=== PATIENT | male | born 1990 | race Caucasian/White ===

== ENCOUNTER 2018-10-02 20:34 | Emergency (ER) | payer MEDICAID ==
[~2018-10-02] VITALS: Ht 188 cm; Wt 86.4 kg
[2018-10-02 21:03] VITALS: Ht 188 cm; Wt 86.4 kg
[2018-10-03 00:25] VITALS: BP 117/60; PULSE 70; RESP 18
--- NOTE | 2018-10-03 04:08 | ERD ---
ER Documentation Chief Complaint Chief Complaint both testicular pain on and off x 1 week, worse today HPI 28-year-old male brought in by his with concerns for bilateral testicular pain intermittently for the past 1 week. Pain is rated 3/10 in severity. He denies any penile discharge. He denies any masses palpated in the testicles. He denies any nausea, vomiting, diarrhea, fevers, abdominal pain. No other symptoms reported currently. ROS All systems reviewed and are negative except as per history of present illness. Allergies Allergies: Coded Allergies: No Known Drug Allergies (Verified Allergy, Mild, 09/30/09) PMhx/Soc History of Surgery: No Anesthesia Reaction: No Hx Neurological Disorder: No Hx Respiratory Disorders: No Hx Cardiac Disorders: No Hx Psychiatric Problems: No Hx Miscellaneous Medical Probl: No Hx Alcohol Use: Yes Hx Substance Use: No Hx Tobacco Use: No Smoking Status: Never smoker FmHx Family History: No diabetes Physical Exam Vitals Vital Signs Date Temp Pulse Resp B/P (MAP) Pulse Ox O2 O2 Flow FiO2 Time Delivery Rate 10/03/18 98.9 70 18 117/60 97 Room Air 00:25 (79) 10/02/18 98.0 69 18 119/67 99 21:03 (84) Physical Exam Const: No acute distress Head: Atraumatic Eyes: Normal Conjunctiva ENT: Normal External Ears, Nose and Mouth. Neck: Full range of motion. No meningismus. Resp: Clear to auscultation bilaterally Cardio: Regular rate and rhythm, no murmurs Abd: Soft, non tender, non distended. Normal bowel sounds Exam: Scrotum: Normal Hernia: None Testes/Epid: Non-tender w/ normal lie Cremaster: Reflex intact Lymph: No inguinal lymphadenopathy Discharge: None Skin: No petechiae or rashes Back: No midline or flank tenderness Ext: No cyanosis, or edema Neur: Awake and alert Psych: Normal Mood and Affect Results 24 hrs Laboratory Tests Test 10/02/18 22:53 Bedside Urine pH (LAB) 6.5 Bedside Urine Protein (LAB) Trace Bedside Urine Glucose (UA) Negative Bedside Urine Ketones (LAB) Negative Bedside Urine Blood Trace-intact Bedside Urine Nitrite (LAB) Negative Bedside Urine Leukocyte Esterase (L Negative [place] [id number] Radiology Main Line: [phone] DIAGNOSTIC IMAGING REPORT Patient: YEN CALZADA : 1990 Age: 28 Sex: M MR #: [id number] DOS: 10/02/18 0000 Ordering MD: OLEGARIO WALTERS PA-C Location: [facility] Room/Bed: PROCEDURE: Ultrasound of the bilateral inguinal regions. CLINICAL INDICATION: Bilateral inguinal pain. TECHNIQUE: High-resolution sonography of the bilateral inguinal regions at the site of pain was performed in the axial and sagittal planes. COMPARISON: None FINDINGS: There is no fluid collection or mass. There is no abnormal inguinal lymphadenopathy. IMPRESSION: 1. Normal bilateral inguinal ultrasound. 2. Any further management regarding the bilateral inguinal pain should be based on clinical grounds. RPTAT: QQ .Elías Wolfe MD, MD Date Time Electronically viewed and signed by .Elías Wolfe MD, on 10/02/2018 23:37 .R/ CC: OLEGARIO WALTERS PA-C [id number] [place] [id number] Radiology Main Line: [phone] DIAGNOSTIC IMAGING REPORT Patient: YEN CALZADA : 1990 Age: 28 Sex: M MR #: [id number] DOS: 10/02/18 0000 Ordering MD: OLEGARIO WALTERS PA-C Location: [facility] Room/Bed: PROCEDURE: US Scrotum. CLINICAL INDICATION: Scrotal pain. TECHNIQUE: Multiple sonographic images of the scrotal region were obtained utilizing a linear array transducer with grayscale and color-flow and pulsed Doppler imaging. The images were reviewed on a high-resolution PACS workstation. COMPARISON: No prior studies are available for comparison. FINDINGS: The right testis measures 4.2 x 2.3 x 2.9 cm. The left testis measures 4.6 x 1.8 x 3.2 cm. There is no intratesticular mass. The epididymi are normal. There is normal flow to both testes demonstrated with color Doppler and pulsed Doppler sonography. There are small bilateral hydroceles with left larger than right. There is no varicocele. The scrotal wall is unremarkable. IMPRESSION: 1. Small bilateral hydroceles with left larger than right. 2. Otherwise normal scrotal ultrasound. RPTAT: QQ .Elías Wolfe MD, Date Time Electronically viewed and signed by .Elías Wolfe MD, MD on 10/02/2018 23:35 .R/ CC: OLEGARIO WALTERS PA-C [id number] Procedures/MDM 28-year-old male presents to the emergency department with signs, symptoms, work-up was consistent with bilateral hydroceles of the testicles. No evidence of urinary tract infection. I doubt sexually transmitted infection. No evidence to suggest acute surgical abdomen, meningitis, serious bacterial infection, or other emergencies. Patient advised to have close follow-up with his primary care physician and return here immediately for any new, worsening, concerning symptoms. Shared medical decision making with the patient and he understands and agrees with plan. Departure Diagnosis: Primary Impression: Testicular pain Condition: Fair Patient Instructions: Hydrocele, Type Not Specified [facility] Usted se simon hecho un examen mdico de control que le indica que no est en kelly condicin que requiera tratamiento urgente en el Departamento de Emergencia. Un estudio ms profundo y el tratamiento de marquis condicin pueden esperar sin ningn riesgo hasta que usted sea atendida/o en el consultorio de marquis mdico o kelly clnica. Es responsabilidad suya arreglar kelly karan para el seguimiento del nain. MANEJO DE CONDICIONES NO URGENTES EN EL FUTURO 1) Si usted tiene un mdico de atencin primaria: Usted debera llamar a marquis mdico de atencin primaria antes de venir al departamento de emergencia. Despus de las horas de consultorio, marquis doctor o marquis asociado/a est disponible por telfono. El mdico o enfermero de larissa en el servicio telefnico puede asesorarle por torrey medio para atender el problema, o nain contrario se puede programar kelly karan. 2) Si usted no tiene un mdico de atencin primaria: Llame al mdico o clnica de referencia que aparece abajo kenroy las horas de consultorio para hacer kelly karan para que le vean. CLINICAS: [place] [phone] [facility] [phone] [place] [address] [phone] [place] [address] [phone] [place] [address] [phone] [place] [id number] [phone] Additional Instructions: Specialist:Usted tiene kelly condicin mdica que requiere que blake a un mark ecialista dentro de los prximos 1-2 mcknight.POR FAVOR,CON MARQUIS SEGUIMIENTO DE PRIMARIA PHSICIAN refferal. SI USTED NO TIENE UN MDICO GENERAL Y / O USTED NO PUEDE PAGAR mohsen a un mdico,los siguientes sapp RECURSOS sido suministrado a usted. ES MARQUIS RESPONSABILIDAD PARA SER VISTOS POR EL ESPECIALISTA: UROLOGOLEGARIO LOMAX PA-C Oct 03, 2018 04:08
== END 2018-10-03 00:26 | disposition home or self-care (01) ==
LOC: FTE 20:34
DX: N50.811 Right testicular pain (principal); N50.812 Left testicular pain
CPT/HCPCS: 76536; 76870; 81003; Z7502